=== PATIENT | female | born 1950 | race Caucasian/White ===

== ENCOUNTER 2024-06-26 09:06 | Day surgery (SDC) | payer MEDICARE ==
[2024-06-22 15:10] LABS: BASOPHILS % (AUTO) 0.7 % (0-1); EOSINOPHILS # (AUTO) 0.2 X10'3 (0-0.9); EOSINOPHILS % (AUTO) 3.1 % (0-6); LYMPHOCYTES # (AUTO) 1.4 X10'3 (1.1-4.8); LYMPHOCYTES % (AUTO) 26.6 % (21-51); MEAN CORPUSCULAR HGB CONC 33.8 g/dL (33.0-36.5); MEAN CORPUSCULAR VOLUME 94.9 FL (78-98); MEAN PLATELET VOLUME 7.7 FL (7.4-10.4); MONOCYTES # (AUTO) 0.4 X10'3 (0-0.9); MONOCYTES % (AUTO) 7.8 % (2-12); NEUTROPHILS # (AUTO) 3.3 X10'3 (1.8-7.7); NEUTROPHILS % (AUTO) 61.8 % (42-75); PRE OP HEMATOCRIT 41.7 % (35.0-45.0); PRE OP HEMOGLOBIN 14.1 g/dL (12.0-16.0); PRE OP PLATELET COUNT 224 X10'3 (140-440); PRE OP WHITE BLOOD COUNT 5.3 10'3 (4.8-10.8); RED BLOOD COUNT 4.39 X10'6 (4.20-5.60); RED CELL DISTRIBUTION WIDTH 13.2 % (11.5-14.5)
[2024-06-22 15:36] LABS: ALBUMIN 3.3 G/DL (3.4-5.0); ALBUMIN/GLOBULIN RATIO 1.2 (1.1-1.5); ALKALINE PHOSPHATASE 69 IU/L (46-116); BLOOD UREA NITROGEN 15 MG/DL (7-18); BUN/CREATININE RATIO 26.8 (10.0-20.0); CALCIUM 8.8 MG/DL (8.5-10.1); CHLORIDE 107 MMOL/L (99-107); CREATININE 0.56 MG/DL (0.40-0.90); PRE OP ALT 21 U/L (30-65); PRE OP ANION GAP 6 (8-16); PRE OP AST 16 U/L (10-37); PRE OP BILIRUB, TOTAL 0.4 MG/DL (0.0-1.0); PRE OP GLUCOSE 116 MG/DL (70-104); PRE OP POTASSIUM 3.5 MMOL/L (3.4-5.1); PRE OP SODIUM 145 MMOL/L (135-145); TOTAL PROTEIN 6.1 G/DL (6.4-8.2); eGFR > 90 ML/MIN
[~2024-06-26] VITALS: Ht 172.7 cm; Wt 65.0 kg
[2024-06-26] VITALS (20 sets, daily range): BP systolic 111–177; BP diastolic 49–109; PULSE 83–108; RESP 10–22; TEMP 98; O2SAT 90–100
[~2024-06-26 09:06] MED LIST: ALB0.5UD IH; ASPI-103 PO; LISI10TA27 PO; MECO10005 PO; MULT-1074 PO
[2024-06-26] MEDS: ringers solution, lacted 1,000 ML IV SCH ×2 (10:32→13:56)
[2024-06-26] MEDS: famotidine 20mg tablet PO ONE (10:32)
[2024-06-26] MEDS ORDERED: sevoflurane 250ml liquid IH ONE (11:49)
[2024-06-26] MEDS ORDERED: ondansetron/PF 4mg/2ml inj IV PRN (11:50)
[2024-06-26] MEDS ORDERED: morphine 4 MG/ML inj SYRINge IV PRN (11:50)
[2024-06-26] MEDS ORDERED: meperidine/PF 25mg/ml syringe IV PRN ×3 (11:50)
[2024-06-26] MEDS ORDERED: proCHLORperazine 10 MG/2 ml inj IV PRN (11:50)
[2024-06-26] MEDS ORDERED: morphine 2 MG/ML inj. syringe IV PRN (11:50)
[2024-06-26] MEDS ORDERED: fentaNYL/PF 50MCG/1 ML 2ML syringe ONE (11:54)
[2024-06-26] MEDS ORDERED: midazolam 1 mg/ML 2ml injection ONE (11:54)
[2024-06-26] MEDS ORDERED: propofol inj 20 ML IV ONE (12:36)
[2024-06-26] MEDS ORDERED: dexamethasone sod phosphate 4mg/ml inj. ONE (12:36)
[2024-06-26] MEDS ORDERED: rocuronium 10mg/ml inj IV ONE (12:37)
[2024-06-26] MEDS ORDERED: ondansetron/PF 4mg/2ml inj ONE (12:37)
[2024-06-26] MEDS ORDERED: sugammadex 200mg/2ml injection IV ONE (12:38)
[2024-06-26] MEDS: acetaminophen 1,000mg/100ml IV 100 ML IV ONE (13:56)
[2024-06-26] MEDS: ipratropium/albuterol 3ml nebule NEB PRN (14:33)
== END 2024-06-26 15:46 | disposition home or self-care (01) ==
LOC: PRE-OP 09:06
PROVIDERS: ATTEND Internal Medicine Critical Care Medicine
DX: R91.8 Other nonspecific abnormal finding of lung field (principal); J44.9 Chronic obstructive pulmonary disease, unspecified; Z79.899 Other long term (current) drug therapy
CPT/HCPCS: 31624; 31627; 31628; 31653; 36415; 71250; 80053; 82948; 85025; 87015; 87070; 87116; 87206; 88173; 88305; 88341; 88342; 93005; 94640; 94760; A4615; A4618; J0131; J1100; J2250; J2405; J2704; J3010; J3490; J7120; Z7506; Z7508; Z7512; Z7610; 31622; 31625; 31626; 31652; 31654

== ENCOUNTER 2024-10-09 14:30 | Inpatient (IN) | payer MEDICARE ==
[2024-10-09] VITALS (7 sets, daily range): BP systolic 182; BP diastolic 82; PULSE 76–100; RESP 16–20; TEMP 97.7; O2SAT 85–99
[~2024-10-09] VITALS: Ht 172.7 cm; Wt 70.5 kg
--- NOTE | 2024-10-09 15:00 | RADIOLOGY REPORT ---
CHEST RADIOGRAPH Indication: sob Technique: Single frontal view of the chest was obtained COMPARISON: CT CT CHEST ION on DOS: 06/22/24 FINDINGS: Lines and Tubes: None Lungs: Increased interstitial prominence Pleura: No effusion. No pneumothorax. Cardiomediastinal contours: Cardiomegaly Bones: Unremarkable IMPRESSION: Increased interstital prominence. This may represent pulmonary vascular congestion or viral pneumonia . Clinical correlation advised.
[2024-10-09 15:29] LABS: MEAN PLATELET VOLUME 7.8 FL (7.4-10.4); RED CELL DISTRIBUTION WIDTH 13.5 % (11.5-14.5)
[2024-10-09 15:38] LABS: CREATININE 0.54 MG/DL (0.40-0.90); TOTAL CARBON DIOXIDE 32.9 MMOL/L (24-32); eCRCL 95 ML/MIN; eGFR > 90 ML/MIN
[2024-10-09 15:45] LABS: PRO BRAIN NATRIURETIC PEPTIDE 384 PG/ML (0-125)
[2024-10-09] MEDS: ipratropium/albuterol 3ml nebule NEB STA (17:53)
--- NOTE | 2024-10-09 18:56 | Physician Documentation ---
History of Present Illness ~ Chief Complaint: Shortness of Breath Stated Complaint: SOB Time Seen by MD: 17:53 OK to notify your PCP?: Yes Source: patient Mode of Arrival: POV Exam Limitations: no limitations HPI 74-year-old female who is here with shortness of breath and productive cough [id number]. Patient states she has a very long history of smoking and still smokes and self-diagnosed herself with pneumonia a month ago and treated herself with amoxicillin which she had at home left over from a prior prescription. She states she felt better with the amoxicillin but then started to feel bad again about a week ago. She has not albuterol inhaler which she uses at home which does not help her cough or shortness of breath. No chest pain. No cardiac history. No lower extremity edema. No fever, chills, body aches. Medication Reconciliation Allergies: Coded Allergies: Penicillins (Verified Allergy, Unknown, RASH SOB, 06/25/24) iodine (Unverified Allergy, Unknown, MAJOR SWELLING/BLOATING, 06/25/24) Scheduled Aspirin (Aspirin), 1 TAB PO DAILY, (Reported) Lisinopril (Lisinopril), 20 MG PO DAILY, (Reported) Mecobalamin (B12 Active), 1 TAB PO DAILY, (Reported) Multivitamin (Multi-Vitamin Daily), 1 TAB PO DAILY, (Reported) Scheduled PRN Albuterol Sulfate Nebs* (Proventil Nebs*), 2.5 MG IH Q6H PRN for SOB or wheezing, (Reported) Past Medical History Past Medical History: COPD Past Surgical History: noncontributory Smoking Status: Current every day smoker Review of Systems All Other Systems at this time: Reviewed and Negative Physical Exam Vital Signs: Temperature: 98.1, Source: Oral, Heart Rate: 82, Respiratory Rate: 16, BP: 178/80, Pulse Oximetry: 95, Weight: 70.500 Oxygen Flow Rate: 0 Physical Exam GENERAL: Alert, no acute distress. HEENT: NCAT, EOMI, PERRL, normal oropharynx, moist oral mucosa. NECK: Supple, trachea midline. CARDIAC: Regular rate and rhythm, no murmurs, rubs, or gallops. Equal distal pulses. No lower extremity edema, cap refill less than 2 seconds. RESPIRATORY: WHEEZING AND RHONCHI THROUGHOUT LUNG NDIAYE. COUGHING INTERMITTENTLY ON EXAM. GASTROINTESTINAL: Non distended, soft, nontender, No guarding or rebound. MUSCULOSKELETAL: Normal range of motion, nontender, no swelling. Normal gait. NEUROLOGICAL: Awake, alert, and oriented x 3. SKIN: Warm/dry, no pallor, no rash. PSYCH: Alert and appropriate. Affect congruent with mood. Speech is clear. Good eye contact. Procedures Procedures CHEST XRAY SHOWS INCREASED PULMONARY CONGESTION. NO INFILTRATES. NO EFFUSION. Progress Results/Orders Results/Orders Medications Received in ER Medications (Trade) Dose Ordered Sig/Rowena Route PRN Reason Start Time Stop Time Status Last Admin Dose Admin (ipratrop/ albuterol 0.5-3(2.5) MG/3ml nebule) 3 ml ONCE STAT NEB 10/09/24 17:36 10/09/24 17:39 DC 10/09/24 17:53 3 ML (ipratrop/ albuterol 0.5-3(2.5) MG/3ml nebule) 3 ml ONCE ONCE NEB 10/09/24 18:10 10/09/24 18:12 DC 10/09/24 19:11 3 ML (SoluMEDROL 125mg inj) 125 mg ONCE ONCE IV 10/09/24 18:50 10/09/24 18:52 DC 10/09/24 19:06 125 MG Vital Signs 10/09/24 10/09/24 10/09/24 10/09/24 14:32 17:32 17:45 17:48 Temp 98.1 Pulse 89 75 Resp 16 19 22 B/P (MAP) 193/90 169/89 (115) Pulse Ox 89 94 95 O2 Delivery Nasal Cannula* O2 Flow Rate 0 2 2.0 FiO2 28 10/09/24 10/09/24 10/09/24 10/09/24 17:54 18:02 18:47 19:11 Pulse 94 89 82 94 Resp 20 18 16 20 B/P (MAP) 178/80 (112) Pulse Ox 95 95 95 94 O2 Delivery Nasal Cannula* Nasal Cannula* Nasal Cannula* O2 Flow Rate 2 2 0 2 FiO2 28 28 N/A 10/09/24 19:21 Pulse 76 Resp 20 Pulse Ox 92 O2 Delivery Nasal Cannula* O2 Flow Rate 2 FiO2 N/A Laboratory Tests Test 10/09/24 15:08 10/09/24 19:04 10/09/24 19:10 10/09/24 20:58 White Blood Count 6.0 Red Blood Count 4.86 Hemoglobin 15.8 Hematocrit 47.0 H Mean Corpuscular Volume 96.8 Mean Corpuscular Hemoglobin 32.5 H Mean Corpuscular Hemoglobin Concent 33.6 Red Cell Distribution Width 13.5 Platelet Count 220 Mean Platelet Volume 7.8 Neutrophils (%) (Auto) 63.9 Lymphocytes (%) (Auto) 20.6 L Monocytes (%) (Auto) 8.7 Eosinophils (%) (Auto) 5.8 Basophils (%) (Auto) 1.0 Neutrophils # (Auto) 3.8 Lymphocytes # (Auto) 1.2 Monocytes # (Auto) 0.5 Eosinophils # (Auto) 0.3 Basophils # (Auto) 0.1 CBC Comment Sodium Level 138 Potassium Level 3.6 Chloride Level 103 Carbon Dioxide Level 32.9 H Anion Gap 2 L Blood Urea Nitrogen 10 Creatinine 0.54 Estimated GFR/1.73 m2 > 90 BUN/Creatinine Ratio 18.5 Glucose Level 88 Calcium Level 9.0 Total Bilirubin 0.6 Aspartate Amino Transf (AST/SGOT) 17 Alanine Aminotransferase (ALT/SGPT) 21 Alkaline Phosphatase 89 Pro-B-Type Natriuretic Peptide 384 H Total Protein 7.2 Albumin 3.7 Globulin 3.5 Albumin/Globulin Ratio 1.1 Chemistry Comments Troponin I High Sensitivity 11 SARS-CoV-2 Antigen (Rapid) Negative Re-Evaluation Re-evaluation : Bronchodilator Tx Response: mild relief Re-Evaluation: Improved Progress Patient showed some improvement. Patient received neb treatments. I contacted the hospitalist regarding the possibility of a [place] and antibiotics. The hospitalist kindly agreed to admit for further workup and care. Medical Decision Making Differential Dx:Considerations: Include: anxiety, asthma, bronchitis, cardiogenic shock, CHF, COPD, dysrhythmia, hypertension, accelerated, hypertension, essential, hypertension, malignant, hyperventilation, hyponatremia, myocardial infarction, panic attack, pneumonia, pneumonitis, pneumothorax, PSVT, pulmonary embolism, respiratory distress, respiratory failure, sinusitis, upper resp. infection, other Additional Infomation AFTER PATIENT HAD A BREATHING TREATMENT SHE STILL HAD SIGNIFICANT BRONCHOSPASM THROUGHOUT HER LUNG NDIAYE AND PATIENT WAS STILL ON OXYGEN TO MAINTAIN HER OXYGEN SATURATION. GIVEN THE FACT THAT PATIENT IS NOT ON OXYGEN AT HOME AND DID NOT IMPROVE WITH BREATHING TREATMENT I RECOMMENDED ADMISSION FOR FURTHER INPATIENT TREATMENT AND MONITORING. Departure Time of Disposition: 18:54 Admitted to Inpatient Unit: to hospitalist Admission Level of Care: PCU with Tele Impression: Primary Impression: COPD exacerbation Additional Impression: Hypoxia Condition: Guarded Referrals: NO PRIMARY CARE PROVIDER (PCP) Education Educated: Patient Educated regarding: diagnosis, treatment, need for follow up Critical Care Note Total Time (mins): 30 Critical Care Note The very real possibility of a deterioration of this patient's condition required the highest level of my preparedness for sudden, emergent intervention. I provided critical care services, which included medication orders, frequent reevaluations of the patient's condition and response to treatment, ordering and reviewing test results, and discussing the case with various consultants. Excludes time spent performing separately billable procedures. The critical care time associated with the care of the patient was. 30 minutes Signature Scribe Signature: X Attestation: SCOTTIE MENDEZ Oct 09, 2024 18:56 BALAJI DELATORRE MD Oct 09, 2024 21:21
[2024-10-09] MEDS: ipratropium/albuterol 3ml nebule NEB ONE (19:11)
[2024-10-09] MEDS ORDERED: mag hydrox/Alum hydrox/simeth 30ml oral suspension PO PRN (21:20)
[2024-10-09] MEDS ORDERED: potassium Cl 40MEQ/1/2NS 520ml 520 ML IV PRN (21:20)
[2024-10-09] MEDS ORDERED: albuterol 2.5 MG/3 ML nebule NEB PRN (21:20)
[2024-10-09] MEDS ORDERED: magnesium hydroxide 30ml (MOM) UD suspension PO PRN (21:20)
[2024-10-09] MEDS ORDERED: magnesium sulf-water 2g/50mL 50 ML IV PRN (21:20)
[2024-10-09] MEDS ORDERED: magnesium sulf-water 4G/100mL 100 ML IV PRN (21:20)
[2024-10-09] MEDS ORDERED: ondansetron/PF 4mg/2ml inj IV PRN (21:20)
[2024-10-09] MEDS ORDERED: magnesium Cl slow-release 64mg tablet PO PRN (21:20)
[2024-10-09] MEDS ORDERED: potassium Cl 20 mEq SR tablet PO PRN ×2 (21:20)
--- NOTE | 2024-10-09 21:37 | HISTORY AND PHYSICAL-Residence ---
History & Physical Providers to CC Resident Creating Document: LIZZY SMITH RES ~ History of Present Illness Reason for Admit\Complaint: Shortness of breaths History of Present Illness This is a 74-year-old female patient presented with complaints of worsening shortness of breath over the last 2-3 days associated with productive cough and limitation in activity significantly. Reports inability to walk even 10 steps without getting short of breath. Denies fevers or chills. She is currently being evaluated and managed by Dr. Johnson for lung nodules, she had a bronchoscopy back in June 2024 and pathology reveals possibility for lung carcinoma. She is a current smoker. Recently also had a PET scan at [facility] last month, has not followed up with Dr. Johnson since her bronchoscopy. However, she does say that he did want her to undergo surgery for lung nodules but she is unwilling for any procedures. She has a PMH of COPD, uses inhalers and nebulizers at home. Her other PMH include hypertension for which she takes lisinopril 20 mg daily and also history of frequent nighttime headaches that wake her up from asleep for which she uses three aspirins. Allergies: Coded Allergies: Penicillins (Verified Allergy, Unknown, RASH SOB, 06/25/24) iodine (Unverified Allergy, Unknown, MAJOR SWELLING/BLOATING, 06/25/24) Home Medications Home Medications Active Reported B12 Active (Mecobalamin) 1,000 Mcg Tab.chew 1 Tab PO DAILY Multi-Vitamin Daily (Multivitamin) 1 Each Tablet 1 Tab PO DAILY Aspirin 325 Mg Tablet 1 Tab PO DAILY Proventil Nebs* (Albuterol) 2.5 Mg/0.5 Ml Vial.neb 2.5 Mg IH Q6H PRN Lisinopril 10 Mg Tablet 20 Mg PO DAILY Past Medical History Past Medical History Hypertension, COPD, lung nodules Past Surgical History Surgical History Comment Uterine fibroids removal Past Social History Social History Comment Current smoker, 30 pack-year history Occasional alcohol use. Denies any other illicit drug abuse Lives at home with a roommate Ambulates without any need for assistive devices ROS ROS As stated above in the HPI, otherwise all systems are reviewed and negative. Exam Vitals: Vital Signs Date Time Temp Pulse Resp B/P (MAP) Pulse Ox O2 Delivery O2 Flow Rate FiO2 10/09/24 21:28 88 16 172/74 (106) 94 0 10/09/24 19:21 Nasal Cannula* N/A 10/09/24 14:32 98.1 General: General: Awake and Alert, no acute distress. HEENT: Conjunctiva pink, Sclera clear, Mucus Membranes moist. Resp: Diminished bilateral breath sounds, wheezing heard Heart: Regular Rate and rhythm, normal S1 and S2 without murmur, rub or gallop. Abdomen: Soft and non tender no organomegaly Extremities: No cyanosis,clubbing or edema. Skin: Warm and Dry. Diagnostic Data Last Recorded Lab Results: 10/09/24 1508 10/09/24 1508 Counseling Services Smoking & Tobacco Cessation: 3-10 Minutes Advance Care Planning Advanced Care plannin - 30 Minutes Additional Plan Acute hypoxemic respiratory failure: Likely secondary to acute bronchitis Wells- score- 3; follow d-dimer Requiring 2-4 L of oxygen Saturation maintaining between 85-88% EKG- left axis deviation on EKG. Suspect underlying pulmonary hypertension. Follow echo One dose IV Solu-Medrol 125 mg in the ER, continue 40 mg q.8 hours One dose Rocephin in the ER, continue with Zithromax Mucinex for expectoration Duo nebs q.4 hours scheduled, albuterol q.2h PRN Maintain saturation between 88 and 92% Chest x-ray reveals increased unilateral opacification in the right middle lobe, follow up CT chest RT eval and treat Hypertension: Currently elevated blood pressures Missed morning dose of lisinopril Continue lisinopril 20 mg daily Remained elevated during the admission, improved slightly with hydralazine. If continued to be elevated constantly, recommend increasing lisnopril to 40 mg daily and add amlodipine if needed Lung nodules: Status post bronchoscopy Path report suspicious for lung cancer Follow up with Dr. Johnson in a.m. for any additional recommendations I saw and discussed the pt with the resident team Agree with assessment and plan as outlined Lines: PIV Code status: Full code DVT prophylaxis: Heparin Diet: Regular Lizzy Smith PGY3, Internal medicine resident Date of Service: Oct 09, 2024 Billing Provider: JOSE MANUEL CARRASCO MD, DEEPANJALI, GOMEZ Oct 09, 2024 21:37 JOSE MANUEL CARRASCO MD Oct 10, 2024 04:20
--- NOTE | 2024-10-09 22:13 | RADIOLOGY REPORT ---
EXAM: CT CT CHEST History: acute hypoxemoc respiratory failure Comparison Study: DI CHEST,SINGLE VIEW on DOS: 10/09/24, CT CT CHEST ION on DOS: 06/22/24 TECHNIQUE: Multidetector CT of the chest was performed. Imaging was performed without IV contrast. Ax ial, coronal, and sagittal multiplanar reformats were obtained from the axial data set by the technol anjali. Radiation Dose : CTDI vol 10.15 mGy, DLP 402.28 mGy*cm. Findings: Evaluation is degraded by respiratory motion. Lungs: Scattered atelectasis/ scarring. 2 cm rounded dense opacity within the right upper lobe. There is scattered nonspecific tree-in-bud nodularity. Pleura: Unremarkable Heart/Great vessels: No cardiomegaly or pericardial effusion. Mild atherosclerotic aortic calcificati on. Mediastinum: Unremarkable. Soft tissues/Bones: Degenerative changes of the thoracic spine. Upper abdomen: The partially visualized upper abdomen is within normal limits. Impression: 1. 2 cm dense opacity within the right upper lobe. Comparison with any prior outside cross-sectional imaging would be helpful in assessing acuity and interval change. Neoplasm cannot be excluded. Consi blaine follow-up CT at 3 months, PET-CT, or tissue sampling in further assessment. 2. Nonspecific scattered tree-in-bud nodularity may reflect inflammatory small airways disease. 3. Additional findings as detailed.
[2024-10-09] MEDS: ipratropium/albuterol 3ml nebule NEB SCH (23:16)
[2024-10-09] MEDS: methylPREDNISolone sod succ/PF 40mg inj. IV SCH (23:28)
[2024-10-09] MEDS: hydrALAZINE 20mg/ml inj. IV PRN (23:38)
[2024-10-09] MEDS ORDERED: hydrALAZINE 20mg/ml inj. IV PRN (23:50)
[2024-10-10] VITALS (14 sets, daily range): BP systolic 126–151; BP diastolic 56–65; PULSE 62–108; RESP 16–18; TEMP 97.4–98.5; O2SAT 92–98
[2024-10-10 00:09] LABS: APTT 26 SECONDS (22-32); INR 1.0 INR
[2024-10-10 01:26] LABS: LEUKOCYTE ESTERASE ,URINE NEGATIVE (Neg); NITRITES, URINE NEGATIVE (Neg); OCCULT BLOOD,URINE TRACE-INTACT (Neg)
[2024-10-10 01:33] LABS: UA COLLECTION TYPE NON-SPECIFIED
[2024-10-10 01:35] LABS: SQUAMOUS EPITHELIAL CELL,UR FEW /LPF (FEW)
[2024-10-10 06:09] LABS: MEAN PLATELET VOLUME 8.2 FL (7.4-10.4); RED CELL DISTRIBUTION WIDTH 13.4 % (11.5-14.5)
[2024-10-10 06:16] LABS: CHOL/HDL RATIO 2.7 (0.00-4.99); CREATININE 0.55 MG/DL (0.40-0.90); LDL CHOLESTEROL 99 MG/DL (50-100); TOTAL CARBON DIOXIDE 31.3 MMOL/L (24-32); eCRCL 93 ML/MIN; eGFR > 90 ML/MIN
--- NOTE | 2024-10-10 06:42 | ELECTROCARDIOGRAPH REPORT ---
[facility] Test Date: 2024-10-09 Test Time: 19:41:01 Pat Name: FLOWER HUGHES Department: EMERGENCY ROOM Room: ORTHO [facility] [place] A Gender: F Mica Spreader: TERI : 1950 Requested By: DEPARTMENT EMERGENCY Order Number: [id number] Reading MD: Dr. El Leyva Measurements Intervals [place] Rate: 77 P: 57 CO: 165 QRS: -53 QRSD: 102 T: 43 QT: 387 QTc: 438 Interpretive Statements Unknown rhythm, irregular rate Incomplete RBBB and LAFB Anteroseptal infarct, old Electronically Signed On 10-10-2024 18:25:[address] El Leyva Please click the below link to view image of tracing.
[2024-10-10] MEDS: K and/or MAG REPLACEMENT MC SCH (08:00)
[2024-10-10] MEDS: levoFLOXACIN-Levaquin 750MG/D5 150 ML IV SCH (08:42)
[2024-10-10] MEDS: heparin, porcine 5000 units/ml vial SQ SCH (09:57)
[2024-10-10] MEDS: guaiFENesin ER 600mg tablet PO SCH (09:57)
[2024-10-10] MEDS: docusate sod 100mg capsule PO SCH (09:59)
--- NOTE | 2024-10-10 13:55 | CARDIOLOGY REPORT ---
APPROVED REPORT EXAM: Comprehensive 2D, Doppler, and color-flow Echocardiogram. Patient Location: [facility] [place] B Heart Rate: 106 bpm Rhythm: SINUS TACHYCARDIA Indications SHORTNESS OF BREATH COPD HYPERTENSION Manager Compliance: NONE Previous echo: NONE 2D Dimensions RVDd 3.2 cm LA Diam4.2 cm IVSd 1.0 (0.7-1.1cm) LVDd 5.3 cm PWd 1.0 (0.7-1.1cm) IVSs 1.3 (0.8-1.2cm) LVDs 3.9 (2.5-4.0cm) PWs 1.2 (0.8-1.2cm) LVOT Diameter 2.12 (1.8-2.4cm) LVEF(%) 51.0 (>50%) IVC 12.34 mmFS (%) 26.3 % SV 69.9 ml CO 7.4 L/min M-Mode Dimensions IVSd 3.30 (0.7-1.1cm) LVDd 6.76 (4.0-5.6cm) Aortic Root 3.01 (2.2-3.7cm) Aortic Cusp Exc 1.98 (1.5-2.0cm) Aortic Valve AoV Peak Rishi. 230.8 cm/s AoV VTI 38.5 cm AO Peak GR. 21.3 mmHg AO Mean GR. 13 mmHg LVOT VTI 28.36 cm LVOT Peak Rishi. 150.8 cm/s BRITNI(VTI)/BSA 2.60 cm2/m2 BRITNI (VTI) 2.60 cm2 Mitral Valve MV E Velocity 72.8 cm/s MV Peak Gr. 3 mmHg MV A Velocity 110.3 cm/s MV PHT 68 ms E/A Ratio 0.7 MVA (PHT) 3.24 cm2 MV VMax87.7 cm/s LEFT VENTRICLE Normal LV size and wall thickness. Overall systolic function is normal. Overall LVEF is 55-60%. RIGHT VENTRICLE RV is normal size and function. ATRIA Left atrium is mildly dilated. AORTIC VALVE Trileaflet AV appears mildly sclerotic and calified without stenosis. Trace insufficiency. MITRAL VALVE Mild MV annular calcification without stenosis. Trace regurgitation. TRICUSPID VALVE TV appears structurally normal with trace regurgitation. PULMONIC VALVE Normal PV without stenosis, physiologic insufficiency. GREAT VESSELS The aortic root is normal in size. IVC is normal in size and collapses greater than 50% with inspirat ion. PERICARDIUM Normal pericardium. No effusion. Other Information Study Quality: Adequate Conclusion Overall LVEF is 55-60%. Normal LV size and wall thickness. Overall systolic function is normal. RV is normal size and function. Trileaflet AV appears mildly sclerotic and calified without stenosis. Trace insufficiency. Mild MV annular calcification without stenosis. Trace regurgitation. TV appears structurally normal with trace regurgitation. Normal PV without stenosis, physiologic insufficiency. Normal pericardium. No effusion.
--- NOTE | 2024-10-10 15:26 | PROGRESS NOTE- Residence ---
Progress Note - Resident Providers to CC Resident Creating Document: CORYMARIA LUISA CABASANTOSHGOMEZ RODRIGUEZ ~ Antibiotic Timeout Antibiotic Ordered?: Yes Subjective Seen and examined the patient at bedside. Improving with shortness of breaths& oxygenation and maintaining saturation at 96 with 3 L of oxygen via nasal cannula. Reports sudden episodes of sleeping and tremulousness of upper limbs and face. She reported bradykinesia for the past few months. Endorses forgetfulness for the past few months. Objective Vital Signs Date Time Temp Pulse Resp B/P (MAP) Pulse Ox O2 Delivery O2 Flow Rate FiO2 10/10/24 10:00 98.5 62 16 126/56 (79) 96 Room Air 10/10/24 07:53 3.0 10/10/24 07:44 32 Result Diagram: 10/10/24 0509 10/10/24 0509 General: Awake and Alert, no acute distress. HEENT: Conjunctiva pink, Sclera clear, Mucus Membranes moist. Resp: Diminished bilateral breath sounds, wheezing heard Cardiovascular system: Regular Rate and rhythm, normal S1 and S2 without murmur, rub or gallop. Abdomen: Soft and non tender no organomegaly Extremities: No cyanosis,clubbing or edema. Skin: Warm and Dry. Neurological: Resting tremors present. Cogwheel rigidity is present in bilateral wrist and the elbow joint. Micrographia is present . suggestive of Parkinson's disease Coagulation Studies Laboratory Tests Test 10/09/24 23:14 Prothrombin Time 10.3 SECONDS (9.0-12.0) INR International Normalized Ratio 1.0 INR Activated Partial Thromboplast Time 26 SECONDS (22-32) D-Dimer 0.59 MG/L FEU (0-0.50) H D-Dimer Comment Coagulation Comments Advance Care Planning Advanced Care plannin - 30 Minutes Plan Plan Acute hypoxemic respiratory failure likely 2/2 1) Acute exacerbation of COPD 2) possible postobstructive pneumonia versus possible PE( Wells- score- 3.5) On 3 L of oxygen via nasal cannula and saturation is maintaining between 93 and 96 EKG- left axis deviation on EKG. Received IV Solu-Medrol 125 mg in the ER and we are continue 40 mg q.8 hours One dose Rocephin in the ER. Change the antibiotic to levofloxacin 750 mg IV daily Mucinex p.o. b.i.d. Duo nebs q.4 hours scheduled, albuterol q.2h PRN Chest x-ray reveals increased unilateral opacification in the right middle lobe. Chest CT showed signs of bronchiectasis and right upper lobe 2 cm mass Continue incentive spirometer q.1h while awake Hypertension: Blood pressures are in 130s On lisinopril 20 mg daily and hydralazine 10 mg IV q.6 H Right upper lobe Lung nodules: Status post bronchoscopy Path report suspicious for lung cancer Follow up with Dr. Johnson in a.m. for any additional recommendations POSSIBLE PARKINSON'S DISEASE She needs the neurology consultation and follow up in outpatient Code status: Full code DVT prophylaxis: SubQ heparin Santosh Roy IM resident, PGY 2 Date of Service: Oct 10, 2024 Billing Provider: JASON CAMPA MD,SANTOSH, RES Oct 10, 2024 15:26
[2024-10-11] VITALS (8 sets, daily range): BP systolic 115–156; BP diastolic 55–74; PULSE 77–106; RESP 17–18; TEMP 97.7–98.2; O2SAT 90–94
[2024-10-11 05:59] LABS: MEAN PLATELET VOLUME 8.0 FL (7.4-10.4); RED CELL DISTRIBUTION WIDTH 13.2 % (11.5-14.5)
[2024-10-11 06:25] LABS: CREATININE 0.70 MG/DL (0.40-0.90); TOTAL CARBON DIOXIDE 30.6 MMOL/L (24-32); eCRCL 73 ML/MIN; eGFR 82 ML/MIN
--- NOTE | 2024-10-11 10:06 | RADIOLOGY REPORT ---
NUCLEAR MEDICINE VENTILATION/PERFUSION LUNG SCAN. INDICATION: PE TECHNIQUE: Following intravenous demonstration of 6 millicuries of technetium 99m MAA, and inhalati on of 40 mCi of Tc 99m DTPA scintigrams were obtained in multiple projections of the lungs. Comparison: CT chest performed on 10/09/2024. FINDINGS: There is normal uptake of radionuclide on both the perfusion portions of the examination. Heterogene ous ventilation which may reflect underlying pulmonary disease. No mismatched perfusion defects are d emonstrated. Uptake is normally homogeneous. IMPRESSION: 1. Low probability for PE.
[2024-10-11] MEDS ORDERED: IPRA3AMP31 NEB (11:17)
[2024-10-11] MEDS ORDERED: LACT1CAP26 PO (11:17)
[2024-10-11] MEDS ORDERED: LEVO750T68 PO (11:17)
[2024-10-11] MEDS ORDERED: GUAI600T45 PO (11:17)
[2024-10-11] MEDS ORDERED: PRED10TA23 PO (13:48)
--- NOTE | 2024-10-11 18:52 | DISCHARGE SUMMARY-Residence ---
Discharge Summary Providers to CC Resident Creating Document: CAMELIA SPEARS RES ~ Discharge Summary Admission Diagnosis: ACUTE HYPOXEMIC RESPIRATORY FAILURE Hospital Course DATE OF ADMISSION: DATE OF DISCHARGE: Condition on DC: Stable Date of Service: Oct 11, 2024 Billing Provider: JASON CAMPA MD, VENKATESH, GOMEZ Oct 11, 2024 18:51
== END 2024-10-11 14:50 | disposition home health service (06) | DRG 189 ==
LOC: ER 14:31 → ORTHO 4S 21:04
PROVIDERS: ADMIT Internal Medicine; ATTEND Family Medicine
PROC: CB121ZZ Planar Nuclear Medicine Imaging of Lungs and Bronchi using Technetium 99m (Tc-99m) (ICD-10-PCS; principal; 2024-10-11)
DX: J96.01 Acute respiratory failure with hypoxia (principal); J18.9 Pneumonia, unspecified organism; J44.1 Chronic obstructive pulmonary disease with (acute) exacerbation; J44.0 Chronic obstructive pulmonary disease with (acute) lower respiratory infection; Z20.822 Contact with and (suspected) exposure to COVID-19; I10 Essential (primary) hypertension; G25.0 Essential tremor; J47.9 Bronchiectasis, uncomplicated; G20.A1 Parkinson's disease without dyskinesia, without mention of fluctuations; Z79.899 Other long term (current) drug therapy; Z87.891 Personal history of nicotine dependence; Z88.0 Allergy status to penicillin; Z91.041 Radiographic dye allergy status
CPT/HCPCS: 36415; 71045; 71250; 78582; 80048; 80053; 80061; 81001; 83036; 83735; 83880; 84484; 85025; 85379; 85610; 85730; 87081; 87811; 93005; 93306; 94640; 94760; 96374; 96375; 97116; 97161; 97530; 99291; A9539; A9540; G0378; J0360; J1644; J1956; J2919